=== PATIENT | male | born 1940 | race Caucasian/White ===

== ENCOUNTER 2016-10-14 14:06 | Emergency (ER) | payer OTHER ==
[2016-10-14 14:43] LABS: BASOPHILS 0.3 % (0.0-2.0); EOSINOPHILS 0.8 % (0.0-6.0); EOSINOPHILS# 0.1 X 10^3uL (0.0-0.4); HEMATOCRIT 45.1 % (42.0-54.0); HEMOGLOBIN 15.5 g/dL (14.0-18.0); LYMPHOCYTES# 2.5 X 10^3uL (0.8-3.8); MEAN CORPUS. HGB CONCENTRATION 34.3 g/dL (32.0-36.0); MEAN CORPUSCULAR HEMOGLOBIN 30.2 pg (29.0-35.0); MEAN PLATELET VOLUME 8.1 fL (7.4-10.4); MONOCYTES 5.1 % (2.0-10.0); MONOCYTES# 0.6 X 10^3uL (0.2-1.0); NEUTROPHILS 70.8 % (54.0-75.0); NEUTROPHILS# 7.8 X 10^3uL (2.6-6.7); PLATELET COUNT 241 X 10^3uL (130-440); RED BLOOD COUNT 5.13 X 10^6uL (4.20-6.10); RED CELL DISTRIBUTION WIDTH 13.4 % (11.5-14.5)
[2016-10-14 14:51] LABS: ALBUMIN 4.2 g/dL (3.5-5.0); ALKALINE PHOSPHATASE 67 U/L (38-126); ALT 30 U/L (21-72); AST 28 U/L (17-59); BILIRUBIN, DIRECT 0.2 mg/dL (0.0-0.4); BILIRUBIN, TOTAL 0.6 mg/dL (0.2-1.3); BLOOD UREA NITROGEN 11 mg/dL (9-20); CALCIUM 8.3 mg/dL (8.4-10.2); CHLORIDE 101 mmol/L (98-107); CREATININE 0.8 mg/dL (0.7-1.3); EST GLOMERULAR FILTRATION RATE > 60 mL/min; ETHYL ALCOHOL 257 mg/dL (<10); GLUCOSE 83 mg/dL (70-100); LIPASE 136 U/L (23-300); POTASSIUM 3.9 mmol/L (3.5-5.1); SODIUM 140 mmol/L (137-145); TOTAL PROTEIN 6.9 g/dL (6.3-8.2)
[2016-10-14] MEDS ORDERED: MAGNESIUM SULFATE 1 GM/2 ML VIAL ONE (15:05)
[2016-10-14] MEDS ORDERED: THIAMINE HCL 200 MG/2 ML VIAL ONE (15:05)
[2016-10-14] MEDS ORDERED: NORMAL SALINE 1,000 ML IV ONE (15:06)
[2016-10-14] MEDS ORDERED: MULTIVITAMINS 10 ML VIAL IV ONE (15:06)
--- NOTE | 2016-10-14 15:12 | CT REPORT ---
HISTORY: Alcohol intoxication, status post fall with injury to left frontal region. COMPARISON: None. TECHNIQUE: Contiguous axial images of the brain were performed from the foramen magnum to the vertex at 5 mm intervals. Coronal reconstructions were performed. Findings: The ventricles, sulci and cisterns are symmetric and age appropriate. There is no intra-axi al hemorrhage, mass, midline shift or large vessel acute territorial infarct. There is no extra axial fluid collection. The globes are intact. The paranasal sinuses appear clear. The mastoids appear well aerated. The bone s and soft tissues appear unremarkable. IMPRESSION: No evidence of acute intracranial hemorrhage or large vessel acute territorial infarct. Final Electronic Signature: This report was electronically signed by Robert Mcguire MD on 10/15/19 17 3:10 PM. juanito /
--- NOTE | 2016-10-14 15:14 | CT REPORT ---
HISTORY: Status post fall, alcohol intoxication. COMPARISON: None. TECHNIQUE: Contiguous axial images of the cervical spine were performed from the skull base through t he upper thorax at 2 mm intervals. Sagittal and coronal reconstructions were performed. No contrast w as used. This examination was performed using automated exposure control, adjustment of mA or kV acco rding to patient size, and/or use of iterative reconstruction technique. FINDINGS: The vertebral body height and alignment is well maintained. There is no acute fracture or d islocation. There is no evidence of spinous process or transverse process fracture. The prevertebral soft tissues appear unremarkable. The bones are mildly osteopenic. There is loss of intervertebral disc space height throughout cervica l spine, most severely affecting C5-C6, there is mild bilateral neural foraminal large. There is mini mal bilateral facet arthropathy. The visualized lungs are clear. The soft tissues the neck appear unremarkable. IMPRESSION: Mild cervical spine degenerative changes. No evidence of acute cervical spine fracture or malalignment. Final Electronic Signature: This report was electronically signed by Robert Mcguire MD on 10/15/19 17 3:12 PM. juanito /
--- NOTE | 2016-10-14 17:24 | ER NURSING DOCUMENTATION ---
Nurse's Notes [facility] Name:Memo Jain Age:76 yrs Sex:Male :1940 Arrival Date:10/14/2016 Time:14:06 Bed4 Private MD: Diagnosis:Alcohol Intoxication, Dependence Acute;Closed Head Injury w/o Cranial Wound, Unspec State LOC;Dehydration Presentation: 10/14 14:19 Presenting complaint: Patient states: ETOH for the past few days after 9 months of tg sobriety (completed [facility] at that time). Vomiting today. No abd pain, abrasion on forehead. Denies headache/pain. Transition of care: patient was not received from another setting of care. 14:19 Acuity: OANH 2 tg 14:19 Method Of Arrival: EMS: 410 tg Triage Assessment: 14:24 General: Appears in no apparent distress, Vomit on clothes and chest. . Behavior is tg cooperative. Pain: Denies pain. Neuro: Level of Consciousness is awake, alert, Oriented to person, place, event, Gait is unsteady per EMS. Speech is normal. Respiratory: Respiratory effort is even, unlabored. GI: Reports vomiting, Denies nausea, pain. Derm: Skin is pink, warm & dry. Historical: - Allergies: No known drug Allergies; - Home Meds: 1. lisinopril 2. other med- unknown - PMHx: HYPERTENSION; - PSHx: back surgery; - Tetanus: < 10 years. - Ebola Screening: : Patient negative for fever greater than or equal to 101.5 degrees Fahrenheit, and additional compatible Ebola Virus Disease symptoms. Patient denies exposure to infectious person. Patient denies travel to an Ebola-affected area in the 21 days before illness onset. No symptoms or risks identified at this time. . - Immunization history: Flu Vaccine < 1 year. - Social history: Smoking status: Patient states was never smoker of tobacco. Screenin:15 Infectious Disease Risk Unable to Obtain. Abuse screen: Denies threats or abuse. Denies tg injuries from another. Nutritional screening: No deficits noted. Suicide Risk Assessment: Suicidal Thinking Present - No ( 0 points), Lives Alone - No (0 points). 16:13 Fall Risk Fall in past 12 months (25 points). No secondary diagnosis (0 pts). IV access tg (20 points). Ambulatory Aid- Gait- Weak (10 pts.). Mental Status- Oriented to own ability (0 pts). Total Sue Fall Scale indicates High Risk Score (45 or more points). Fall prevention measures have been instituted. Side Rails Up X 2 Placed Close to Nursing Station Frequent Obs/Assessments Occuring As available patient and family educated on Fall Prevention Program and Strategies. Assessment: 16:22 Reassessment: Pt up, ambulating in room with steady gait. Anxious to leave. Has called tg his "partner" to come pick him up. Dr. Malik aware. Pt provided with paper gown to wear home. . 17:22 Reassessment: Patient denies pain at this time. Patient states feeling better. Patient tg states symptoms have improved. Patient appears in no apparent distress at this time. denies nausea. Taking PO fluids well. . Vital Signs: 14:22 BP 120 / 67; Pulse 74; Resp 16; Temp 98.4(O); Pulse Ox 85% on R/A; Weight 82.1 kg (R); tg Height 6 ft. 2 in. (187.96 cm) (R); Pain 0/10; 17:00 BP 113 / 57; Pulse 72; Resp 14; Pulse Ox 91% on R/A; Pain 0/10; tg 14:22 Body Mass Index 23.24 (82.10 kg, 187.96 cm) tg [place] Coma Score: 14:35 Eye Response: spontaneous(4). Verbal Response: oriented(5). Motor Response: obeys cd commands(6). Total: 15. ED Course: 14:08 Patient arrived in ED. ds 14:15 Valuables Remains with patient. tg 14:19 Mason Carballo, ALEXANDRA is Primary Nurse. tg 14:22 Carlos Malik MD is Attending Physician. cd 14:22 Triage completed. tg 14:27 Arm band placed on. tg 14:27 Bed in low position Call Light in Reach Gowned HOB Elevated Side rails up x2 Emesis tg basin given. 14:[address] pm1 14:[address] pm1 15:[address] back from [address]. pm1 Administered Medications: 15:30 Drug: Banana Bag - (NS 0.9% 1000 ml, folic acid 600 mcg, Thiamine 100 mg, Multivitamin tg 10 ml, Magnesium Sulfate 1 grams); Route: IV; Rate: calculated rate; Site: left antecubital; 16:13 Follow up: IV Status: Completed infusion; IV Intake: 1000ml tg 17:51 CANCELLED (Physician Discretion): NS 0.9% 1000 ml IV at bolus once tg Intake: 16:13 IV: 1000ml; Total: 1000ml. tg Outcome: 16:36 Discharge ordered by . cd 17:22 Discharged to home ambulatory, via taxi, Dr. Malik escorted patient to taxi tg 17:22 Condition: stable 17:22 Discharge Assessment: Patient awake, alert and oriented x 3. No cognitive and/or functional deficits noted. Patient verbalized understanding of disposition instructions. 17:22 Instructed on discharge instructions, follow up and referral plans. 17:22 IV D/Bryant 17:22 Discharge Assessment: Steady gait. Appropriate speech, expressing remorse for ETOH tg use. Partner is meetin him at his home this evening. Dr. Malik confirmed. 17:23 Patient left the ED. tg Signatures: Mason Carballo RN RN tg Srot, Brionna, Reg Reg Carlos Wang MD MD cd McBride, Philisha pm1
--- NOTE | 2016-10-14 17:24 | ER PHYSICIAN DOCUMENTATION ---
Physician Documentation [facility] Name:Memo Jain Age:76 yrs Sex:Male :1940 Arrival Date:10/14/2016 Time:14:06 Bed4 Private MD: Carlos Tirado Disposition: 10/14/16 16:36 Discharged to Home/Self Care. Impression: Alcohol Intoxication, Dependence Acute, Closed Head Injury w/o Cranial Wound, Unspec State LOC, Dehydration. - Condition is Fair. - Discharge Instructions: DEHYDRATION (8y-Adult), Abuse, Alcohol - ALCOHOL INTOXICATION, Acute Brain Injuries - HEAD INJURY, No Wake-Up (Adult). - Medical Reconciliation form form. - Follow up: Private Physician; When: 2 - 3 days; Reason: Recheck today's complaints, Continuance of care. - Problem is an acute exacerbation. - Symptoms have improved. HPI: 10/14 14:10 This 76 yrs old Male presents to ER via EMS with complaints of ETOH cd Intoxication, Dehydration and recent fall with head injury. 14:10 The patient is an alcoholic and completed [facility] for ETOH 7 months ago. cd He has remained sober for 7 months until the last 2 - 3 days. The patient has been drinking heavy, [place] Whiskey, for the past three days. He took a fall and hit his forehead. He has amnesia for the fall, is confused, intoxicated and dehydrated. He denies neck pain. He denies fever, chills, nausea, vomiting, abdominal pain or chest pain. He has had very little to eat or drink for the past few days. He denies ETOH withdrawal symptoms or seizures.. Onset: The symptom(s)/episode began/occurred suddenly, 3 day(s) ago. Severity of symptoms: At their worst the symptoms were moderate in the emergency department the symptoms are unchanged. The patient has experienced similar episodes in the past, and the symptoms today are exactly the same. Patient denies anticoagulants or Plavix. Historical: - Allergies: No known drug Allergies; - Home Meds: 1. lisinopril 2. other med- unknown - PMHx: HYPERTENSION; - PSHx: back surgery; - Tetanus: < 10 years. - Ebola Screening: : Patient negative for fever greater than or equal to 101.5 degrees Fahrenheit, and additional compatible Ebola Virus Disease symptoms. Patient denies exposure to infectious person. Patient denies travel to an Ebola-affected area in the 21 days before illness onset. No symptoms or risks identified at this time. . - Immunization history: Flu Vaccine < 1 year. - Social history: Smoking status: Patient states was never smoker of tobacco. ROS: 14:25 Constitutional: Positive for fatigue, malaise, poor PO intake, Negative for chills, cd fever. 14:25 Cardiovascular: Negative for chest pain, edema, palpitations. 14:25 Respiratory: Negative for cough, hemoptysis, shortness of breath, wheezing. 14:25 Abdomen/GI: Positive for anorexia, Negative for abdominal pain, nausea, vomiting, hematemesis, black/tarry stool, rectal bleeding. 14:25 Neuro: Positive for altered mental status, gait disturbance, speech changes, syncope, weakness, Negative for dizziness, headache, loss of consciousness, seizure activity, tingling, visual changes. 14:25 All other systems are negative. Exam: 14:35 Constitutional: The patient appears alert, awake, non-diaphoretic, non-toxic, well cd developed, well nourished, anxious, listless, in obvious distress, moderately distressed. 14:35 Head/face: Noted is abrasion(s), that are mild, contusion, that is deep, of the forehead, Basilar skull fracture findings: the patient does not have obvious signs of a basilar skull fracture, no Arguelles signs, no hemotympanum, no nasal drainage, no racoon eyes. 14:35 Eyes: Pupils: equal, round, and reactive to light and accomodation, Extraocular movements: intact throughout. 14:35 ENT: Exam is negative for acute changes. 14:35 Neck: C-spine: Nexus Criteria: there is no tenderness to the posterior midline, no focal neurologic deficit is appreciated, no distracting injury is present, patient is clinically intoxicated, the patient shows decreased alertness, vertebral tenderness, is not appreciated. 14:35 Chest/axilla: Exam negative for acute changes. 14:35 Cardiovascular: Rate: normal, Rhythm: regular, Pulses: no pulse deficits are appreciated, Heart sounds: normal, Edema: is not appreciated. 14:35 Respiratory: the patient does not display signs of respiratory distress, Respirations: normal, no acute changes, Breath sounds: are normal, clear throughout. 14:35 Abdomen/GI: Inspection: abdomen appears normal, Bowel sounds: active, Palpation: 14:35 Back: Exam negative for acute changes. 14:35 Musculoskeletal/extremity: Exam is negative for abrasion. 14:35 Skin: Exam negative for acute changes. 14:35 Neuro: Orientation: to person, place, Mentation: lucid, slow to respond, confused, Memory: remote memory is intact. Cranial nerves: CN II- XII are normal as tested, Motor: moves all fours, Sensation: no acute changes, seizure activity, is not displayed by the patient. 14:35 Psych: Affect is flat, Patient has no thoughts/intents to harm self or others. Judgement / Insight is normal. Recent memory is impaired. Remote memory is intact. Delusions/hallucinations are not present. Vital Signs: 14:22 BP 120 / 67; Pulse 74; Resp 16; Temp 98.4(O); Pulse Ox 85% on R/A; Weight 82.1 kg (R); tg Height 6 ft. 2 in. (187.96 cm) (R); Pain 0/10; 17:00 BP 113 / 57; Pulse 72; Resp 14; Pulse Ox 91% on R/A; Pain 0/10; tg 14:22 Body Mass Index 23.24 (82.10 kg, 187.96 cm) tg [place] Coma Score: 14:35 Eye Response: spontaneous(4). Verbal Response: oriented(5). Motor Response: obeys cd commands(6). Total: 15. MDM: 14:12 Data interpreted: Pulse oximetry: on room air is 91 %. Interpretation: normal. cd 14:20 Differential Diagnosis altered mental status, flu, ETOH Intoxication, ICH, Concussion, cd Cervical Injury, Dehydration. 14:22 Patient medically screened. cd 14:25 Data reviewed: vital signs, nurses notes, old medical records, and as a result, I will cd continue to observe the patient, order radiologic studie(s), CT scan, of the head and neck, administer IV fluids, NS bolus, NS maintenence, and a rally pack.. 16:20 Counseling: I had a detailed discussion with the patient and/or guardian regarding: the cd historical points, exam findings, and any diagnostic results supporting the discharge/admit diagnosis, lab results, radiology results, the need for outpatient follow up, for a recheck, with the patient's primary care provider, to return to the emergency department if symptoms worsen or persist or if there are any questions or concerns that arise at home. Response to treatment: the patient's symptoms have markedly improved after treatment, the patient's condition has returned to base line, patient is well hydrated. and as a result, I will discharge patient. 10/14 14:46 Order name: CBC AUTO DIF, MDIF/RMOR IF IND; Complete Time: 16:16 EDMS 10/14 16:15 Interpretation: Normal Except: WHITE BLOOD COUNT 11.0. 10/14 14:52 Order name: BASIC METABOLIC PANEL; Complete Time: 16:16 EDMS 10/14 16:15 Interpretation: Normal Except: CARBON DIOXIDE 21; Dehydration. 10/14 14:52 Order name: HEPATIC PANEL; Complete Time: 16:16 EDMS 10/14 16:15 Interpretation: Normal. 10/14 14:52 Order name: LIPASE; Complete Time: 16:16 MS 10/14 16:15 Interpretation: Normal. 10/14 14:52 Order name: ETHYL ALCOHOL; Complete Time: 16:16 EDMS 10/14 16:15 Interpretation: Abnormal: ETHYL ALCOHOL 257. 10/14 14:52 Order name: PROTIME/INR; Complete Time: 16:16 MS 10/14 16:15 Interpretation: Normal. 10/14 15:14 Order name: CAT SCAN; HEAD W/O CON [id number]; Complete Time: 16:16 MS 10/14 16:16 Interpretation: Normal: : See Report. 10/14 15:15 Order name: CAT SCAN;NECK SOFTTISSW/[id number]; Complete Time: 16:16 [facility] 10/14 16:16 Interpretation: Normal Except: See Report. 10/14 14:23 Order name: I & O; Complete Time: 17:51 10/14 14:23 Order name: Iv Saline Lock; Complete Time: 17:51 10/14 14:23 Order name: Pulse Ox Continuous; Complete Time: 17:51 10/14 16:34 Order name: Road Test; Complete Time: 17:51 cd Dispensed Medications: 15:30 Drug: Banana Bag - (NS 0.9% 1000 ml, folic acid 600 mcg, Thiamine 100 mg, Multivitamin tg 10 ml, Magnesium Sulfate 1 grams); Route: IV; Rate: calculated rate; Site: left antecubital; 16:13 Follow up: IV Status: Completed infusion; IV Intake: 1000ml tg 17:51 CANCELLED (Physician Discretion): NS 0.9% 1000 ml IV at bolus once tg Signatures: Mason Carballo RN RN tg Carlos Malik MD MD cd
--- NOTE | 2016-10-17 13:36 | RADIOLOGY REPORT ---
A limited single portable view of the chest, without prior films for comparison , demonstrates the heart, vessels and lungs to be unremarkable. No infiltrate, fluid or pneumothorax is seen. IMPRESSION: Unremarkable limited single portable view of the chest. MTDD
== END 2016-10-14 17:24 | disposition home or self-care (01) ==
LOC: ER 14:06
DX: F10.229 Alcohol dependence with intoxication, unspecified (principal); E86.0 Dehydration; S06.890A Other specified intracranial injury without loss of consciousness, initial encounter; S00.81XA Abrasion of other part of head, initial encounter; W19.XXXA Unspecified fall, initial encounter; Y92.019 Unspecified place in single-family (private) house as the place of occurrence of the external cause; R53.83 Other fatigue; R53.81 Other malaise; R53.1 Weakness; R55 Syncope and collapse; I10 Essential (primary) hypertension; Z79.899 Other long term (current) drug therapy; Z74.3 Need for continuous supervision
CPT/HCPCS: 70450; 70490; 71010; 72125; 80048; 80076; 80320; 83690; 85025; 85610; 96365; 99284; A0425; A0429; J3475; J7030